=== PATIENT | male | born 1955 | race Caucasian/White ===

== ENCOUNTER 2022-11-06 17:28 | Emergency (ER) | payer MEDICARE, OTHER, SELFPAY ==
[2022-11-06] VITALS (15 sets, daily range): BP systolic 102–150; BP diastolic 64–88; PULSE 63–77; RESP 12–25; TEMP 36.6; O2SAT 94–100
--- NOTE | 2022-11-06 17:37 | ECG_ITS ---
Measurements Intervals [place] Rate: 63 P: 50 CA: 140 QRS: -8 QRSD: 102 T: -10 QT: 411 QTc: 421 Interpretive Statements SINUS RHYTHM COMPARED TO ECG 07/28/2019 00:34:50 SINUS RHYTHM NOW PRESENT Electronically Signed On 11-07-2022 9:35:45 CDT by Luz Ga M.D.
[2022-11-06 18:27] LABS: Basophils Absolute Auto 0.1 K/mm3 (0.0-0.1); Basophils Percent Auto 0.4 % (0.2-1.2); Eosinophils Absolute Auto 0.2 K/mm3 (0-0.3); Eosinophils Percent Auto 1.4 % (0-4.4); Hematocrit 39.9 % (42.0-52.0); Hemoglobin 13.7 g/dL (14.0-18.0); Immature Granulocyte Absolute 0.03 K/mm3 (0.00-0.031); Immature Granulocyte Percent A 0.2 % (0-0.5); Lymphocytes Absolute Auto 6.71 K/mm3 (0.9-3.2); Lymphocytes Percent Auto 53.8 % (18.3-44.2); Mean Corpuscular HGB Conc 34.3 g/dl (32-36); Mean Corpuscular Hemoglobin 32.4 pg (26-34); Mean Corpuscular Volume 94.3 fl (80-100); Mean Platelet Volume 9.9 fl (7.4-10.4); Monocytes Absolute Auto 0.6 K/mm3 (0.1-0.6); Monocytes Percent Auto 4.7 % (2.6-8.5); Neutrophils Absolute Auto 4.9 K/mm3 (1.3-6.7); Neutrophils Percent Auto 39.5 % (45.5-73.1); Platelet Count Result 150 k/mm3 (150-375); Red Blood Count 4.23 M/mm3 (4.6-6.20); Red Cell Distribution Width 12.7 % (11.5-14.5); White Blood Count 12.5 K/mm3 (4.5-10.0)
[2022-11-06 18:38] LABS: Alanine Aminotransferase 37 U/L (6-50); Albumin Level 4.1 g/dL (3.5-5.1); Alkaline Phosphatase 68 U/L (38-126); Anion Gap 7 mmol/L (8-16); Aspartate Amino Transferase 38 U/L (17-59); Bilirubin,Total 0.4 mg/dL (0.2-1.3); Blood Urea Nitrogen 19 mg/dL (9-20); Calcium 8.6 mg/dL (8.4-10.2); Carbon Dioxide 30 mmol/L (22-30); Chloride 101 mmol/L (98-107); Estimated CRCL calculation 60 ml/min; Estimated Glomerular Filt Rate > 60; Glucose 115 mg/dL (65-110); Sodium 138 mmol/L (137-145)
--- NOTE | 2022-11-06 18:45 | ED.GENADULT ---
HPI - General Adult General Chief complaint: Syncope Stated complaint: syncopal episode History of Present Illness HPI narrative: 67 yo male presents via EMS after fainting while eating at a [employer]. Per , pt was eating and didnt look well. He then had a brief syncopal episode lasting about 2 minutes. No head or neck trauma. No convulsions noted. Related Data Home Medications Medication Instructions Recorded Confirmed calcium carbonate 600 mg-vitamin cap PO 07/28/19 D3 5 mcg (200 unit) capsule (Calcium 600 + D(3)) magnesium oxide mg PO 07/28/19 [id number] 200 mcg-vit K 100 cap PO 07/28/19 mcg-lycop 500 [id number] capsule (Daily Multivitamin) omeprazole magnesium 20 mg 20 mg PO DAILY 07/28/19 capsule,delayed release ([employer] (omeprazole)) Allergies Allergy/AdvReac Type Severity Reaction Status Date / Time No Known Allergies Allergy Verified 11/06/22 17:30 Review of Systems Review of Systems: CONSTITUTIONAL: Denies fever, chills, or sweats. EYES: Denies visual changes, redness, or discharge. ENT: Denies rhinorrhea, congestion, sore throat, or otalgia. CARDIOVASCULAR: Denies chest pain, palpitations, or edema. RESPIRATORY: Denies cough or dyspnea. GASTROINTESTINAL: Denies abdominal pain, nausea, vomiting, or diarrhea. GENITOURINARY: Denies dysuria or hematuria. SKIN: Denies rash or itching. MUSCULOSKELETAL: Denies back pain, joint pain, or myalgia. NEUROLOGIC: Denies headache, numbness, or weakness. PSYCHIATRIC: Denies anxiety or depression. [facility] Past Medical History Medical History (Updated 11/06/22 @ 21:54 by Wyatt Aj DO) Syncope Surgical History Surgical History (Updated 07/28/19 @ 00:42 by Eileen Merchant) No history of previous surgery Social History Social History (Updated 07/28/19 @ 00:43 by Eileen Merchant) Smoking status: Unknown if ever smoked Gender identity (if verbalized by the patient): Male Course Vital Signs Vital signs: Vital Signs Temperature 97.8 F 11/06/22 17:31 Pulse Rate 63 11/06/22 17:31 Respiratory Rate 16 11/06/22 17:31 Blood Pressure 112/70 11/06/22 17:31 Pulse Oximetry 94 11/06/22 17:31 Oxygen Delivery Room Air 11/06/22 17:31 Temperature 97.8 F 11/06/22 17:31 Pulse Rate 77 11/06/22 20:14 Respiratory Rate 25 H 11/06/22 19:25 Blood Pressure 150/83 H 11/06/22 20:14 Pulse Oximetry 100 11/06/22 19:25 Oxygen Delivery Room Air 11/06/22 17:31 Medical Decision Making MDM Narrative Medical decision making narrative: 67-year-old male presents via EMS after a brief syncopal episode with no head or neck trauma. No chest pain. Episode was witnessed by . We will get cardiac work-up. EKG with a sinus rhythm at 63 bpm, LA interval of 140, QRS duration of 102, QTc 417, normal axis no ischemic changes Cardiac work-up is reassuring. Patient and family have requested a COVID test which I have added onto the work-up. He is stable for discharge home. Vital Signs Vital Signs: Vital Signs Temperature 97.8 F 11/06/22 17:31 Pulse Rate 63 11/06/22 17:31 Respiratory Rate 16 11/06/22 17:31 Blood Pressure 112/70 11/06/22 17:31 Pulse Oximetry 94 11/06/22 17:31 Oxygen Delivery Room Air 11/06/22 17:31 Temperature 97.8 F 11/06/22 17:31 Pulse Rate 77 11/06/22 20:14 Respiratory Rate 25 H 11/06/22 19:25 Blood Pressure 150/83 H 11/06/22 20:14 Pulse Oximetry 100 11/06/22 19:25 Oxygen Delivery Room Air 11/06/22 17:31 Lab Data 11/06/22 18:22 11/06/22 18:22 Labs: Lab Results 11/06/22 11/06/22 11/06/22 Range/Units 18:22 18:22 18:22 WBC 12.5 H (4.5-10.0) K/mm3 RBC 4.23 L (4.6-6.20) M/mm3 Hgb 13.7 L (14.0-18.0) g/dL Hct 39.9 L (42.0-52.0) % MCV 94.3 (80-100) fl MCH 32.4 (26-34) pg MCHC 34.3 (32-36) g/dl RDW 12.7 (11.5-14.5) % Plt Count 150 (150-375)
[2022-11-06] MEDS: LACTATED RINGERS 1,000 ML 999 ML IV CONT (19:03)
[2022-11-06 21:38] LABS: NT Pro B Type Natriuretic Pept < 20 pg/mL (19.9-100); Troponin I < 0.012 ng/mL (0.000-0.034)
[2022-11-06 22:52] LABS: SARS-CoV-2 RNA PCR Negative (Negative)
== END 2022-11-06 22:44 | disposition home or self-care (01) ==
PROVIDERS: Emergency Provider Emergency Medicine
DX: R55 Syncope and collapse (principal); Z20.822 Contact with and (suspected) exposure to COVID-19
CPT/HCPCS: 36415; 80053; 83880; 84484; 85025; 87426; 93005; 96360; 99283; C9803; J7120; U0003; U0005